=== PATIENT | female | born 1975 | race Two or more races ===

== ENCOUNTER 2017-04-24 16:21 | Emergency (ER) | payer OTHER ==
[~2017-04-24] VITALS: Ht 160 cm; Wt 56.7 kg
[2017-04-24 16:47] VITALS: BP 172/84
[2017-04-24] MEDS ORDERED: GABAPENTIN300 MG ORAL (16:57)
[2017-04-24] MEDS ORDERED: ROBAXIN-750750 MG PO (16:57)
[2017-04-24] MEDS ORDERED: Methocarbamol 750mg tab ORAL ONE (17:00)
[2017-04-24 17:18] VITALS: BP 165/81
--- NOTE | 2017-04-24 18:16 | Emergency Room Report ---
History of Present Illness General Chief Complaint: Headache Source: Patient Present Illness HPI The patient is a 41-year-old female with a history of diabetes presenting for neck pain, back pain, and numbness. She states that the symptoms began last week for no known reason and have been gradually increasing. She denies any injury. Pain is a 10 out of 10 dull ache to the right upper back, neck, and left arm. She also admits to numbness/tingling sensation of the left third fourth and fifth fingers. She has been taking naproxen which does help. Pain is worse with movement. She denies any other symptoms including nausea, vomiting, fever, chills, shortness of breath, chest pain, fatigue Allergies: Coded Allergies: No Known Allergies (Unverified , 04/24/17) Patient History Past Medical History: see triage record Pertinent Family History: none Last Menstrual Period: 04/17/17 Reviewed Nursing Documentation: PMH: Agreed, PSxH: Agreed Nursing Documentation-PMH Past Medical History: No History, Except For Hx Hypertension: Yes Hx Diabetes: Yes Review of Systems All Other Systems: negative except mentioned in HPI Physical Exam Vital Signs Date Time Temp Pulse Resp B/P Pulse Ox O2 Delivery O2 Flow Rate FiO2 04/24/17 16:27 98.1 96 16 172/84 100 Room Air Sp02 EP Interpretation: reviewed, normal General Appearance: no apparent distress, alert, GCS 15, non-toxic Head: normocephalic, atraumatic Eyes: bilateral eye PERRL, bilateral eye normal inspection ENT: hearing grossly normal, normal pharynx, no angioedema, normal voice Neck: normal inspection, full range of motion, no bony tend, tender lateral - L Respiratory: chest non-tender, lungs clear, normal breath sounds, speaking full sentences Cardiovascular #1: regular rate, rhythm, no edema Musculoskeletal: normal inspection, normal range of motion, tender - TTP to the R paraspinal muscles of T spine Neurologic: alert, oriented x3, responsive, motor strength/tone normal, sensory intact, speech normal Psychiatric: judgement/insight normal, memory normal, mood/affect normal, no suicidal/homicidal ideation Skin: normal color, no rash, warm/dry, well hydrated Medical Decision Making PA Attestation Dr. Lynch is my supervising physician. Patient management was discussed with my supervising physician Diagnostic Impression: Primary Impression: Radiculopathy Qualified Codes: M54.10 - Radiculopathy, site unspecified Additional Impression: Muscle strain ER Course The patient is a 41 old female with a history of diabetes presenting for pain and numbness/tingling Differential diagnoses considered but not limited to: Radiculopathy, disc herniation, muscle strain, fracture, muscle spasm Physical exam: Consistent with muscle strain of the right thoracic paraspinal muscles. Also consistent with radiculopathy to the left upper extremity The patient will be discharged home and is given a prescription for gabapentin and Robaxin. She will continue taking the naproxen as recommended by her primary doctor. She was informed that if pain continues, she may need MRI ER precautions given Last Vital Signs Date Time Temp Pulse Resp B/P Pulse Ox O2 Delivery O2 Flow Rate FiO2 04/24/17 17:19 98.1 04/24/17 17:18 77 16 165/81 100 Room Air Status: improved Disposition: HOME, SELF-CARE Condition: Improved Scripts Gabapentin* (GABAPENTIN*) 300 Mg Capsule 300 MG ORAL THREE TIMES A DAY, #30 CAP 0 Refills Prov: CHAVO THAKKAR.AVaibhav 04/24/17 Methocarbamol* (ROBAXIN-750*) 750 Mg Tablet 750 MG PO TID, #21 TAB 0 Refills Prov: CHAVO THAKKAR P.A. 04/24/17 Referrals: ALONDRA BYNUM (PCP) Patient Instructions: Cervical Radiculopathy, Muscle Strain Additional Instructions: I discussed my findings with the patient. All questions and concerns have been answered. Treatment and medication compliance have been addressed. I advised the patient that they need to follow up with PMD in 3-5 days. Return to ED if symptoms worsen, new symptoms arise, or if needed for any reason. Patient verbalized understanding of discharge instructions. The patient was informed that if pain continues or worsens, she may need an MRI CHAVO THAKKAR Apr 24, 2017 18:16
== END 2017-04-24 17:20 | disposition home or self-care (01) ==
LOC: EMR 17:19
DX: M54.10 Radiculopathy, site unspecified (principal); T14.8 Other injury of unspecified body region; X58.XXXA Exposure to other specified factors, initial encounter; Y93.9 Activity, unspecified; Y92.9 Unspecified place or not applicable; E11.9 Type 2 diabetes mellitus without complications; I10 Essential (primary) hypertension; M54.2 Cervicalgia; M79.602 Pain in left arm; R20.0 Anesthesia of skin
CPT/HCPCS: 99284